=== PATIENT | male | born 1985 | race Caucasian/White ===

== ENCOUNTER 2017-12-10 10:25 | Emergency (ER) | payer BC ==
[~2017-12-10] VITALS: Ht 172.7 cm; Wt 68.0 kg
== END 2017-12-10 11:37 | disposition home or self-care (01) ==
LOC: ER 10:25
DX: J02.8 Acute pharyngitis due to other specified organisms (principal)

== ENCOUNTER 2018-01-31 17:58 | Outpatient (CLI) | payer BC | END 2018-01-31 18:27 | disposition home or self-care (01) | LOC: LAB 17:58 | DX: Z11.8 Encounter for screening for other infectious and parasitic diseases (principal) ==